=== PATIENT | female | born 1950 | race Asian ===

== ENCOUNTER 2021-05-30 06:00 | Day surgery (SDC) | payer OTHER | END 2021-05-30 14:50 | disposition home or self-care (01) | LOC: AMB-ENDOS 06:00 | PROVIDERS: ATTEND Surgery | DX: D12.2 Benign neoplasm of ascending colon (principal); Z20.822 Contact with and (suspected) exposure to COVID-19; Z12.11 Encounter for screening for malignant neoplasm of colon ==